=== PATIENT | female | born 1965 | race Caucasian/White ===

== ENCOUNTER 2016-04-12 08:21 | Emergency (ER) | payer OTHER, MEDICARE ==
[~2016-04-12] VITALS: Ht 160 cm; Wt 86.2 kg
[~2016-04-12 08:21] MED LIST: AUGMENTIN 875-1 EACH PO; CYCLOBENZAPRINE5 M2 PO; ENDOCET 325 MG-1 TA1 PO; FIORICET 325 MG1 TAB PO; FLONASE120 SPRAY/ NASB; GUAIFENESIN-COD10 ML PO; IBUPROFEN600 M1 PO; MOTRIN 600 MG600 MG PO; MOTRIN600 MG PO; NORCO 325 MG-51 TAB PO; NORVIR100 M1 PO; OXYCODONE HYDRO30 MG PO; PHENERGAN12.5 M1 PO; REYATAZ 300MG300 MG PO; TRUVADA 200 MG-1 TAB PO; ZITHROMAX Z PA250 MG PO
[2016-04-12 08:27] VITALS: BP 125/75
--- NOTE | 2016-04-12 09:02 | RADIOLOGY REPORT ---
EXAMINATION: XR FINGER, RIGHT CLINICAL INFORMATION: Evaluate for fracture COMPARISON: None TECHNIQUE: Three views of the right thumb. FINDINGS: Acute fracture proximal shaft distal phalanx with minimal cortical width displacement. Fracture line does not appear to extend to the articular surface. Joint spaces are preserved. Normal bony mineralization. IMPRESSION: Transverse fracture proximal shaft distal phalanx right thumb with negligible cortical width displacement.
[2016-04-12] MEDS ORDERED: NAPROSYN500 M1 PO (09:30)
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
== END 2016-04-12 09:34 ==
LOC: ERH 08:21
DX: S62.521A Displaced fracture of distal phalanx of right thumb, initial encounter for closed fracture (principal); W23.0XXA Caught, crushed, jammed, or pinched between moving objects, initial encounter
CPT/HCPCS: 73140-RT

== ENCOUNTER 2016-05-01 17:09 | Emergency (ER) | payer OTHER, MEDICARE ==
[~2016-05-01] VITALS: Ht 160 cm; Wt 86.2 kg
[~2016-05-01 17:09] MED LIST changes: +NAPROSYN500 M1 PO
[2016-05-01 17:22] VITALS: BP 136/90
[2016-05-01] MEDS ORDERED: CYCLOBENZAPRINE10 M1 PO (19:14)
[2016-05-01] MEDS ORDERED: IBUPROFEN800 M1 PO (19:14)
[2016-05-01] MEDS ORDERED: FIORICET 50-301 EACH PO (19:14)
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
== END 2016-05-01 19:18 ==
LOC: ERH 17:09
DX: S16.1XXA Strain of muscle, fascia and tendon at neck level, initial encounter (principal); R51 Headache; V43.52XA Car driver injured in collision with other type car in traffic accident, initial encounter; Y92.9 Unspecified place or not applicable

== ENCOUNTER 2017-10-15 03:48 | Inpatient (IN) | payer OTHER, MEDICARE ==
[~2017-10-15] VITALS: Ht 160 cm; Wt 91.0 kg
[~2017-10-15 03:48] MED LIST changes: +CYCLOBENZAPRINE10 M1 PO; +FIORICET 50-301 EACH PO; +IBUPROFEN800 M1 PO; +M.V.I. ADULT10 ML; +NORVIR100 M2 PO; +OXYCODONE HCL10 M2 PO; +PERCOCET 5-3251 EACH PO; +PREDNISONE10 M2 PO; +REYATAZ300 MG PO; +TRUVADA 200 MG1 EACH PO
--- NOTE | 2017-10-15 10:35 | Operative Report ---
Operative/Inv Procedure Report Surgery Date: 10/15/17 Name of Procedure: Laparoscopic revision of gastric bypass (trimming of the gastric pouc/ gastrojejunostomy/small bowel) Pre-Operative Diagnosis: Morbid Obesity BMI 36, DANNY, s/p LRYGB Post-Operative Diagnosis: Same Estimated Blood Loss: 50ml to 100ml Surgeon/Senior Hardware Engineer: Hesham Anthony DO Anesthesia: general endotracheal tube IV Fluids: 1500 cc Drains: 10 Fr RUQ BRADY Drain Specimens: Portion of stomach/GJ/small bowel Complications: None Condition: Stable Operative Indication: This is a 52-year-old female who presented to the office for workup for revisional surgery after gastric bypass. Patient underwent a gastric bypass approximately 10 years ago and now had some weight regain and inability to lose more weight. Preoperative upper endoscopy showed a dilated gastrojejunostomy and a long/dilated gastric pouch. A laparoscopic revision of the patient's gastric bypass was then discussed in detail. All risks including but not limited to bleeding, infection, leak, stricture, marginal ulcer, injury to surrounding bowel/esophagus/stomach/liver/spleen, malabsorption, internal hernia /small bowel obstruction, dumping syndrome, DVT/PE, and mortality 02/999 patients were discussed in detail. I also explained that since this is a revision of her risk of morbidity is higher than it is for the initial gastric bypass. The patient understood everything and decided to proceed. Operative/Procedure Note Note: The patient was brought to the operating room and placed on the table in supine position. Venodyne stockings were placed and adequate general endotracheal anesthesia was obtained. The patient was prepped and draped in standard surgical fashion. A 2 cm incision was made supraumbilically and slightly to the left of the midline and then using a 12 mm clear blunt visiport and a 10 mm 0 laparoscope the abdominal cavity was accessed. Great care was taken to go through the anterior rectus sheath, the posterior rectus sheath, and through the peritoneum. Once the peritoneum was entered the abdominal cavity was insufflated to 15 mmHg. Upon initial examination we did note some adhesions around the liver and in the right upper quadrant. 5 mm ports were placed, one in the epigastrium, one in the left upper quadrant, and one in the left lateral position. At that point right upper quadrant adhesions were lysed using harmonic scalpel until we had adequate room for placement of a 5 mm port in the right upper quadrant. Once all the ports were in we began dissecting the Analisa limb/gastrojejunostomy/gastric pouch. All adhesions around the hiatus were lysed using harmonic scalpel and EndoShears. All omental adhesions around the gastrojejunostomy and the small bowel were divided as well until the anatomy was clearly visualized. It was noted that the patient did have a long candycane with a dilated gastrojejunostomy and a slightly bigger gastric pouch. An Reyes tube was then placed into the gastric pouch through the gastrojejunostomy and down into the Analisa limb. And then the candycane/gastrojejunostomy/gastric pouch were trimmed along the Reyes tube using 60 mm purple staple loads 3. Following this the whole staple line was oversewn using 2-0 Vicryl suture imbricating the staple line. The resected portion of the stomach/small bowel were removed through the 12 mm port site. Following this an air and a methylene blue leak test were performed and no obvious leak was noted. The Reyes tube was then removed and we examined the area of dissection. No obvious bleeding/injury to surrounding structures were noted. The gastric pouch and the gastrojejunostomy now appeared a lot smaller. Left upper quadrant was irrigated until clear. Of note the 5 mm left upper quadrant port was upsized to a 12 mm port to allow for the stapler. We did visualize the jejunojejunostomy and there was no obvious evidence of an internal hernia. A 10 Tamazight BRADY drain was then placed through the right upper quadrant incision under the liver and over the spleen. All ports were removed under direct visualization, no bleeding was noted. Skin was closed using 4-0 Monocryl. Steri-Strips and dressings were placed. The patient was successfully extubated and transferred to the recovery room in stable condition. The patient tolerated the procedure well with no complications. Findings: No hiatal hernia, dilated pouch and anastomosis, campos odonnell CC: Vanda AVALOS,Renato
--- NOTE | 2017-10-15 11:03 | Admission Core Measures ---
Acute Coronary Syndrome (CM) ACS Core Measures Acute Coronary Syndrome Diagnosis No Congestive Heart Failure (NEW) CHF Core Measures Congestive Heart Failure Diagnosis No Cerebrovascular Accident CVA Core Measures CVA/TIA Diagnosis No Venous Thromboembolism VTE Core David (View Protocol) VTE Risk Factors Surgery No Mechanical VTE Prophylaxis d/t N/A MechProphylax Ordered No VTE Pharm Prophylaxis d/t NA PharmProphylax ordered Problem List As ranked by this Provider includes Assessment & Plan 1. S/P gastric bypass 2. Morbid obesity 3. Human immunodeficiency virus (HIV) seropositivity HOME MEDS Home Med List Atazanavir Sulfate (Reyataz) 300 MG CAPSULE 1 CAP PO DAILY HIV (Reported) Emtricitabine/Tenofovir (Truvada 200 MG-300 MG Tablet) 200 MG-300 MG TABLET 1 TAB PO DAILY HIV (Reported) Oxycodone HCl 10 MG TABLET 1 TAB PO TIDPRN PAIN (Reported) Ritonavir (Norvir) 100 MG CAPSULE 1 CAP PO DAILY HIV (Reported)
--- NOTE | 2017-10-15 11:07 | Surg Short-stay <48hrs Dis Sum ---
Visit Information Visit Dates Admission Date: 10/15/17 Discharge Date: 10/17/17 Surgical Short Stay DC Summary Admission Diagnosis: Morbid Obesity (BMI 36), DANNY, s/p LRYGB Final Diagnosis: Morbid Obesity (BMI 36), DANNY, s/p LRYGB s/p Surgery Date: 10/15/17 Name of Procedure: Laparoscopic revision of gastric bypass (trimming of the gastric pouch/ gastrojejunostomy/small bowel) Procedure(s): Surgery Date: 10/15/17 Name of Procedure: Laparoscopic revision of gastric bypass (trimming of the gastric pouch/ gastrojejunostomy/small bowel) Summary/Significant Findings: Electively scheduled laparoscopic revision of gastric bypass (trimming of the gastric pouch/gastrojejunostomy/small bowel) by on 10/15/17 for history of morbid obesity (BMI 36), DANNY, and s/p LRYGB status. BRADY drain left in place at the time of surgery. Started on stage 1 diet post-operatively. Upper gi study done on POD#1 to rule out leak and obstuction. Pain control titrated from iv to oral medication as able. Stable to go home once tolerating stage 1 diet and pain controlled. BRADY drain removal done prior to her discharge home. Condition at Discharge: stable Discharge Disposition: home or self care Discharge instructions provided to patient/family: Yes Post discharge follow-up plan: one week follow up with Copies to: Vanda AVALOS,Renato
--- NOTE | 2017-10-15 11:10 | Patient Discharge Instructions ---
Discharge Instructions General Discharge Information You were seen/treated for: Morbid Obesity (BMI 36), DANNY, s/p LRYGB You had these procedures: Surgery Date: 10/15/17 Name of Procedure: Laparoscopic revision of gastric bypass (trimming of the gastric pouch/ gastrojejunostomy/small bowel) Watch for these problems: fever>101.3, increased pain, redness/swelling/drainage, dizziness, shortness of breath, chest pains No bath, but you may shower: Yes Other wound care: ok to remove outer dressings. leave white steri strips in place. keep incisions clean & dry. dry guaze dressing changes daily or as needed for previous drain site until the drainage stops. Diet Continue normal diet: No Recommended Diet: Bariatric Additional DIET Information: weekly bariatric stage diet advancement as directed, as tolerated Activity Full Activity/No Limits: No Activity Self Limited: Yes Pounds, do NOT lift more than: 10 Other activity limits: no heavy lifting. no strenuous activity. Acute Coronary Syndrome Inclusion Criteria At DC or during hospital stay patient has or had the following: ACS DIAGNOSIS No Discharge Core Measures Meds if any: Prescribed or Continued at Discharge Meds if any: NOT Prescribed or Continued at Discharge Congestive Heart Failure Inclusion Criteria At DC or during hospital stay patient has or had the following: CHF DIAGNOSIS No Discharge Core Measures Meds if any: Prescribed or Continued at Discharge Meds if any: NOT Prescribed or Continued at Discharge Cerebrovascular accident Inclusion Criteria At DC or during hospital stay patient has or had the following: CVA/TIA Diagnosis No Discharge Core Measures Meds if any: Prescribed or Continued at Discharge Meds if any: NOT Prescribed or Continued at Discharge Venous thromboembolism Inclusion Criteria VTE Diagnosis No VTE Type NONE VTE Confirmed by (Test) NONE Discharge Core Measures - Per Current guidelines, there needs to be overlap - treatment for the first 5 days of Warfarin therapy. - If discharged on Warfarin prior to 5 days of - overlap therapy, the patient will need to be - assessed for post discharge needs including - *Post discharge parental anticoagulation - *Warfarin and/or parental anticoagulation education - *Follow up date to check INR post discharge At least 5 days overlap therapy as Inpatient No Meds if any: Prescribed or Continued at Discharge Note: Overlap Therapy is Warfarin and Anticoagulant Meds if any: NOT Prescribed or Continued at Discharge
[2017-10-15] MEDS ORDERED: PROTONIX40 M3 PO (11:11)
[2017-10-15 13:51] VITALS: BP 144/94
--- NOTE | 2017-10-15 14:52 | PN- Bariatrics ---
Subjective Subjective: POST-OP NOTE Reports some epigastric discomfort. "Feels like gas", and just tried some gas drops. No nausea. Ambulating without difficulty. No dizziness. No shortness of breath. No chest pains. Voided without difficulty. Someone will be bringing in her home medications that our pharmacy does not provide, for tomorrow. She anticipates an upper gi study in the morning. Objective Vital Signs and I&Os Vital Signs Date Time Temp Pulse Resp B/P B/P Pulse O2 O2 Flow FiO2 Mean Ox Delivery Rate 10/15 1351 97 Room Air 10/15 1351 98.2 85 18 144/94 97 Room Air Intake & Output 10/15 1600 10/15 0800 10/15 0000 10/14 1600 10/14 0800 10/14 0000 Intake Total Output Total Balance Patient 211 lb Weight Weight Bed scale Measurement Method Physical Exam: General - alert & oriented x 3. comfortable. no acute distress. Lungs - clear bilaterally. no w/r/r. Cardiac - s1s2. reg. Abdomen - soft. dressings stained but intact. DARBY drain with some bloody drainage. expected александр-incisional tenderness. Extremities - warm bilaterally. no c/c/e. calves soft and nontender b/l. athrombics active. Current Medications: Current Medications Sig/Yo Start time Last Medication Dose Route Stop Time Status Admin Acetaminophen 1,000 MG Q6 10/15 1800 AC N/A 1 UNIT IV 10/16 1214 Atazanavir 300 MG DAILY 10/15 1500 AC PO Cefazolin Sodium 2,000 MG IQ8 10/15 1600 CAN IV 10/16 0001 Cefazolin Sodium 2 GM IQ8 10/15 1600 AC N/A 1 UNIT IV 10/16 0029 Cefazolin Sodium 2,000 MG ONCE 10/15 0000 DC IV 10/15 2359 Dexamethasone 8 MG ONCE PRN 10/15 1345 AC IV PUSH Emtricitabine/ 1 TAB DAILY 10/15 1415 AC Tenofovir PO Fentanyl Citrate 0 .STK-MED ONE 10/15 0711 DC .ROUTE Heparin Sodium 5,000 UNIT Q8 10/15 1400 AC 10/15 (Porcine) SC 1423 Heparin Sodium 0 .STK-MED ONE 10/15 0632 DC (Porcine) .ROUTE Heparin Sodium 5,000 UNIT ONCE 10/15 0000 DC (Porcine) SC 10/15 2359 Hydromorphone HCl 0 .STK-MED ONE 10/15 1309 DC .ROUTE Hydromorphone HCl 0 .STK-MED ONE 10/15 1203 DC .ROUTE Hydromorphone HCl 0 .STK-MED ONE 10/15 0712 DC .ROUTE Midazolam HCl 0 .STK-MED ONE 10/15 0711 DC .ROUTE Morphine Sulfate 2 MG Q4-6 PRN PRN 10/15 1345 AC 10/15 IV 1418 Ondansetron HCl 4 MG Q6P PRN 10/15 1345 AC IV Ondansetron HCl 0 .STK-MED ONE 10/15 1214 DC .ROUTE Oxycodone HCl 5 MG Q4-6 PRN PRN 10/15 1345 AC PO Oxycodone HCl 10 MG Q4-6 PRN PRN 10/15 1345 AC PO Oxycodone HCl 15 MG Q4-6 PRN PRN 10/15 1345 AC PO Pantoprazole Sodium 40 MG DAILY 10/16 0900 AC IV Potassium Chloride 20 MEQ .[id number] 10/15 1345 AC 10/15 Dextrose/Sodium 1,000 ML IV 1412 Chloride Ritonavir 100 MG DAILY 10/15 1500 AC PO Simethicone 40 MG Q6P PRN 10/15 1345 AC 10/15 PO 1423 Assessment/Plan Assessment/Plan This 52 year old female with hx HIV, morbid obesity (BMI 36), DANNY, s/p LRYGB, who is POD#0 s/p laparoscopic revision of gastric bypass (trimming of the gastric pouch/gastrojejunostomy/small bowel), darby drain x 1 stage 1 bariatric diet as tolerated npo after midnight for upper gi study in AM pain medication as ordered (IV tylenol / oxycodone / IV morphine prn) hep sc - dvt ppx protonix - gi ppx anti-emetics as needed family to bring in her home meds tomorrow morning for HIV oob/ambulation encouraged monitor DARBY drainage f/u AM labs possible d/c home tomorrow vs will d/w Core Measures Venous Thromboembolism VTE Risk Factors Surgery No Mechanical VTE Prophylaxis d/t N/A MechProphylax Ordered No VTE Pharm Prophylaxis d/t NA PharmProphylax ordered
[2017-10-15 21:24] VITALS: BP 180/98
[2017-10-15 22:49] VITALS: BP 148/92
[2017-10-16 06:17] VITALS: BP 130/90
--- NOTE | 2017-10-16 07:52 | PN- General Surgery ---
See Addendum Subjective Subjective: Patient doing well this am. Ambulating, voiding, tolerated clears last HS, and pain is well controlled. She denies any other issues or complaints. No concerns per nursing. Objective Vital Signs and I&Os Vital Signs Date Time Temp Pulse Resp B/P B/P Pulse O2 O2 Flow FiO2 Mean Ox Delivery Rate 10/16 1100 Room Air 10/16 0800 96 Room Air 10/16 0617 98.5 82 20 130/90 96 Room Air 10/16 0000 95 Room Air Room Air 10/15 2249 148/92 10/15 2200 95 Room Air 10/15 2124 97.9 82 16 180/98 95 Room Air 10/15 2000 95 Room Air 10/15 1800 96 Room Air 10/15 1351 97 Room Air 10/15 1351 98.2 85 18 144/94 97 Room Air Intake & Output 10/16 1600 10/16 0800 10/16 0000 10/15 1600 10/15 0800 10/15 0000 Intake Total 1500 3120 650 Output Total 300 2060 2590 300 Balance -300 -560 530 350 Intake, IV 1500 2700 500 Intake, Oral 0 420 150 Number 0 0 Bowel Movements Output, 60 190 Drainage Output, Urine 300 2000 2400 300 Patient 203 lb 211 lb Weight Weight Bed scale Measurement Method Physical Exam: General: A, A, NAD Abdomen: S, obese, ND, appropriately ttp, dressings with some strikethrough and perincisional ecchymosis, darby with scant serosanginous fluid Extremities: No clubbing, cyanosis or edema Current Medications: Current Medications Sig/Yo Start time Last Medication Dose Route Stop Time Status Admin Acetaminophen 1,000 MG Q6 10/15 1800 AC 10/16 N/A 1 UNIT IV 10/16 1214 0701 Atazanavir 300 MG DAILY 10/15 1500 AC 10/16 PO 1038 Cefazolin Sodium 2,000 MG IQ8 10/15 1600 CAN IV 10/16 0001 Cefazolin Sodium 2 GM IQ8 10/15 1600 DC 10/16 N/A 1 UNIT IV 10/16 0029 0007 Cefazolin Sodium 2,000 MG ONCE 10/15 0000 DC IV 10/15 2359 Dexamethasone 8 MG ONCE PRN 10/15 1345 AC IV PUSH Emtricitabine/ 1 TAB DAILY 10/15 1415 AC 10/16 Tenofovir PO 1038 Heparin Sodium 5,000 UNIT Q8 10/15 1400 AC 10/16 (Porcine) SC 0701 Heparin Sodium 5,000 UNIT ONCE 10/15 0000 DC (Porcine) SC 10/15 2359 Hydromorphone HCl 0 .STK-MED ONE 10/15 1309 DC .ROUTE Hydromorphone HCl 0 .STK-MED ONE 10/15 1203 DC .ROUTE Morphine Sulfate 2 MG Q4-6 PRN PRN 10/15 1345 AC 10/16 IV 0440 Ondansetron HCl 4 MG Q6P PRN 10/15 1345 AC IV Ondansetron HCl 0 .STK-MED ONE 10/15 1214 DC .ROUTE Oxycodone HCl 5 MG Q4-6 PRN PRN 10/15 1345 AC PO Oxycodone HCl 10 MG Q4-6 PRN PRN 10/15 1345 AC PO Oxycodone HCl 15 MG Q4-6 PRN PRN 10/15 1345 AC PO Pantoprazole Sodium 40 MG DAILY 10/16 0900 AC 10/16 IV 1038 Potassium Chloride 20 MEQ .Q6H40M 10/15 1345 AC 10/16 Dextrose/Sodium 1,000 ML IV 0442 Chloride Ritonavir 100 MG DAILY 10/15 1500 AC 10/16 PO 1038 Simethicone 40 MG Q6P PRN 10/15 1345 AC 10/16 PO 0701 Results Last 48 Hours of Labs: Laboratory Tests 10/16 0700 Chemistry Sodium (137 - 145 mmol/L) 139 Potassium (3.5 - 5.1 mmol/L) 4.3 Chloride (98 - 107 mmol/L) 109 H Carbon Dioxide (22 - 30 mmol/L) 23 Anion Gap (5 - 16) 7 BUN (7 - 17 mg/dL) 11 Creatinine (0.5 - 1.0 mg/dL) 0.6 Estimated GFR (>60 ml/min) > 60 BUN/Creatinine Ratio (7 - 25 %) 18.3 Glucose (65 - 99 mg/dL) 168 H Magnesium (1.6 - 2.3 mg/dL) 1.8 Hematology CBC w Diff NO MAN DIFF REQ WBC (4.8 - 10.8 /CUMM) 7.7 RBC (4.20 - 5.40 /CUMM) 4.22 Hgb (12.0 - 16.0 G/DL) 12.0 Hct (37 - 47 %) 35.9 L MCV (81.0 - 99.0 FL) 85.1 MCH (27.0 - 31.0 PG) 28.4 MCHC (33.0 - 37.0 G/DL) 33.3 RDW (11.5 - 14.5 %) 14.8 H Plt Count (130 - 400 /CUMM) 174 MPV (7.4 - 10.4 FL) 9.7 Gran % (42.2 - 75.2 %) 88.3 H Lymphocytes % (20.5 - 51.1 %) 8.7 L Monocytes % (1.7 - 9.3 %) 3.0 Eosinophils % (0 - 5 %) 0 Basophils % (0.0 - 2.0 %) 0 Absolute Granulocytes (1.4 - 6.5 /CUMM) 6.8 H Absolute Lymphocytes (1.2 - 3.4 /CUMM) 0.7 L Absolute Monocytes (0.10 - 0.60 /CUMM) 0.2 Absolute Eosinophils (0.0 - 0.7 /CUMM) 0 Absolute Basophils (0.0 - 0.2 /CUMM) 0 Assessment/Plan Assessment/Plan This 52 year old female with hx HIV, morbid obesity (BMI 36), DANNY, s/p LRYGB, who is POD#0 s/p laparoscopic revision of gastric bypass (trimming of the gastric pouch/gastrojejunostomy/small bowel), darby drain x 1 stage 1 bariatric diet as tolerated upper gi study negative pain medication as ordered (IV tylenol / oxycodone / IV morphine prn) hep sc - dvt ppx protonix - gi ppx anti-emetics as needed oob/ambulation encouraged monitor DARBY drainage f/u AM labs possible d/c home today vs tomorrow d/w Core Measures Venous Thromboembolism VTE Risk Factors Surgery No Mechanical VTE Prophylaxis d/t N/A MechProphylax Ordered No VTE Pharm Prophylaxis d/t NA PharmProphylax ordered
[2017-10-16 08:12] LABS: ABSOLUTE BASOPHIL COUNT 0 /CUMM (0.0-0.2); ABSOLUTE EOSINOPHIL COUNT 0 /CUMM (0.0-0.7); ABSOLUTE GRANULOCYTE CT 6.8 /CUMM (1.4-6.5); ABSOLUTE LYMPH COUNT 0.7 /CUMM (1.2-3.4); ABSOLUTE MONOCYTE COUNT 0.2 /CUMM (0.10-0.60); BASOPHIL % 0 % (0.0-2.0); EOSINOPHIL % 0 % (0-5); HEMATOCRIT 35.9 % (37-47); MEAN CORPUSCULAR HGB 28.4 PG (27.0-31.0); MEAN CORPUSCULAR HGB CONC 33.3 G/DL (33.0-37.0); MEAN CORPUSCULAR VOLUME 85.1 FL (81.0-99.0); MEAN PLATELET VOLUME 9.7 FL (7.4-10.4); PLATELET COUNT 174 /CUMM (130-400); RBC DISTRIBUTION WIDTH 14.8 % (11.5-14.5); RED BLOOD CELL CT 4.22 /CUMM (4.20-5.40); WHITE BLOOD CELL COUNT 7.7 /CUMM (4.8-10.8)
[2017-10-16 09:27] LABS: GRANULOCYTE % 88.3 % (42.2-75.2)
--- NOTE | 2017-10-16 09:41 | RADIOLOGY REPORT ---
EXAMINATION: [place] UPPER GI SERIES CLINICAL INFORMATION: Postop day 1. Rule out leak/obstruction status post revision gastric bypass. COMPARISON: None TECHNIQUE: A single contrast upper GI series with fluoroscopy and spot imaging was performed. The patient ingested 30 mL Gastroview without difficulty in the upright and oblique positions. FINDINGS: A vamp cut out worker radiograph demonstrates a surgical drain in the left upper quadrant. There are postoperative findings related to gastric bypass. Contrast flowed from the esophagus into the stomach and readily emptied on progressive swallows. No leak was demonstrated. FLUOROSCOPY TIME: 1 minute 17 IMPRESSION: Postoperative findings related to gastric bypass without evidence of leak or obstruction.
[2017-10-16 13:56] VITALS: BP 147/92
[2017-10-16 22:22] VITALS: BP 128/83
[2017-10-17 06:29] VITALS: BP 146/80
[2017-10-17] MEDS ORDERED: PERCOCET 5-3251 EACH PO (07:53)
[2017-10-17] MEDS ORDERED: PROTONIX40 M3 PO (07:53)
--- NOTE | 2017-10-17 07:58 | PN- Bariatrics ---
Subjective Subjective: No complaints. Reports pain controlled. Tolerating stage 1 diet. No nausea. Passing flatus. Ambulating well, without difficulty. No dizziness. No shortness of breath. No chest pains. Voiding well. Eager for discharge to home today. She [facility] her [facility] [place]. Objective Vital Signs and I&Os Vital Signs Date Time Temp Pulse Resp B/P B/P Pulse O2 O2 Flow FiO2 Mean Ox Delivery Rate 10/17 0629 98.2 70 20 146/80 98 Room Air 10/17 0000 Room Air 10/16 2222 98.5 66 20 128/83 94 10/16 1400 97 Room Air 10/16 1356 98.3 71 20 147/92 97 Room Air 10/16 1100 Room Air 10/16 0800 96 Room Air Intake & Output 10/17 0810/17 0000 10/16 1600 10/16 0800 10/16 0000 10/15 1600 Intake Total 425 1290 1650 1500 3120 650 Output Total 1800 1220 1335 2060 2590 300 Balance -1375 70 315 -560 530 350 Intake, IV 454 406 2426 1500 2700 500 Intake, Oral 150 540 600 0 420 150 Number 0 0 0 0 Bowel Movements Output, 20 35 60 190 Drainage Output, Urine 1800 1200 1300 2000 2400 300 Patient 201 lb 203 lb 211 lb Weight Weight Bed scale Measurement Method Physical Exam: General - alert & oriented x 3. comfortable. no acute distress. Lungs - clear bilaterally. no w/r/r. Cardiac - s1s2. reg. Abdomen - soft. bowel sounds appreciated. DARBY drain with scant serosang drainage. expected александр-incisional tenderness. dressings stained but intact. Extremities - warm bilaterally. no c/c/e. calves soft and nontender b/l. Current Medications: Current Medications Sig/Yo Start time Last Medication Dose Route Stop Time Status Admin Acetaminophen 1,000 MG Q6 10/15 1800 DC 10/16 N/A 1 UNIT IV 10/16 1214 1206 Atazanavir 300 MG DAILY 10/15 1500 AC 10/16 PO 1038 Dexamethasone 8 MG ONCE PRN 10/15 1345 AC IV PUSH Emtricitabine/ 1 TAB DAILY 10/15 1415 AC 10/16 Tenofovir PO 1038 Heparin Sodium 5,000 UNIT Q8 10/15 1400 AC 10/16 (Porcine) SC 1401 Morphine Sulfate 2 MG Q4-6 PRN PRN 10/15 1345 AC 10/16 IV 2127 Ondansetron HCl 4 MG Q6P PRN 10/15 1345 AC IV Oxycodone HCl 5 MG Q4-6 PRN PRN 10/15 1345 AC PO Oxycodone HCl 10 MG Q4-6 PRN PRN 10/15 1345 AC 10/16 PO 1401 Oxycodone HCl 15 MG Q4-6 PRN PRN 10/15 1345 AC PO Pantoprazole Sodium 40 MG DAILY 10/16 0900 AC 10/16 IV 1038 Patient Medication 1 ED ONE ONE 10/16 1800 DC 10/16 Teaching ED 10/16 1801 2127 Potassium Chloride 20 MEQ .[id number] 10/15 134 AC 10/16 Dextrose/Sodium 1,000 ML IV 2127 Chloride Ritonavir 100 MG DAILY 10/15 1500 AC 10/16 PO 1038 Simethicone 40 MG Q6P PRN 10/15 1345 AC 10/16 PO 2128 Results Last 48 Hours of Labs: Laboratory Tests 10/16 0700 Chemistry Sodium (137 - 145 mmol/L) 139 Potassium (3.5 - 5.1 mmol/L) 4.3 Chloride (98 - 107 mmol/L) 109 H Carbon Dioxide (22 - 30 mmol/L) 23 Anion Gap (5 - 16) 7 BUN (7 - 17 mg/dL) 11 Creatinine (0.5 - 1.0 mg/dL) 0.6 Estimated GFR (>60 ml/min) > 60 BUN/Creatinine Ratio (7 - 25 %) 18.3 Glucose (65 - 99 mg/dL) 168 H Magnesium (1.6 - 2.3 mg/dL) 1.8 Hematology CBC w Diff NO MAN DIFF REQ WBC (4.8 - 10.8 /CUMM) 7.7 RBC (4.20 - 5.40 /CUMM) 4.22 Hgb (12.0 - 16.0 G/DL) 12.0 Hct (37 - 47 %) 35.9 L MCV (81.0 - 99.0 FL) 85.1 MCH (27.0 - 31.0 PG) 28.4 MCHC (33.0 - 37.0 G/DL) 33.3 RDW (11.5 - 14.5 %) 14.8 H Plt Count (130 - 400 /CUMM) 174 MPV (7.4 - 10.4 FL) 9.7 Gran % (42.2 - 75.2 %) 88.3 H Lymphocytes % (20.5 - 51.1 %) 8.7 L Monocytes % (1.7 - 9.3 %) 3.0 Eosinophils % (0 - 5 %) 0 Basophils % (0.0 - 2.0 %) 0 Absolute Granulocytes (1.4 - 6.5 /CUMM) 6.8 H Absolute Lymphocytes (1.2 - 3.4 /CUMM) 0.7 L Absolute Monocytes (0.10 - 0.60 /CUMM) 0.2 Absolute Eosinophils (0.0 - 0.7 /CUMM) 0 Absolute Basophils (0.0 - 0.2 /CUMM) 0 Assessment/Plan Assessment/Plan This 52 year old female with hx HIV, morbid obesity (BMI 36), DANNY, s/p LRYGB, who is POD#2 s/p laparoscopic revision of gastric bypass (trimming of the gastric pouch/gastrojejunostomy/small bowel), darby drain x 1 tolerating stage 1 bariatric diet pain controlled with oxycodone / tylenol oob/ambulating well hep sc - dvt ppx protonix - gi ppx DARBY drain removed without difficulty d/c home today will d/w Core Measures Venous Thromboembolism VTE Risk Factors Surgery No Mechanical VTE Prophylaxis d/t N/A MechProphylax Ordered No VTE Pharm Prophylaxis d/t NA PharmProphylax ordered
== END 2017-10-17 08:30 | DRG 619 ==
LOC: SDA 03:48 → 2NB 03:48 → ENRESERV 12:38 → ENTRNSPT 13:27 → EDTRNSPTSTS 13:32 → EDTRNSPT 13:32 → 2NB 13:41 → CMPTRNSPT 13:56 → ENPENDDIS 10-17 07:54 → 2NB 10-17 08:30
PROVIDERS: Physician Assistant
PROC: 0DBA4ZZ Excision of Jejunum, Percutaneous Endoscopic Approach (ICD-10-PCS; principal; 2017-10-15)
PROC: 0DB64ZZ Excision of Stomach, Percutaneous Endoscopic Approach (ICD-10-PCS; 2017-10-15)
PROC: 0D164ZA Bypass Stomach to Jejunum, Percutaneous Endoscopic Approach (ICD-10-PCS; 2017-10-15)
DX: E66.01 Morbid (severe) obesity due to excess calories (principal); B20 Human immunodeficiency virus [HIV] disease; Z68.36 Body mass index [BMI] 36.0-36.9, adult; Z98.84 Bariatric surgery status; G47.30 Sleep apnea, unspecified; I10 Essential (primary) hypertension
CPT/HCPCS: 2NBP; 36592; 74240; 82436; J0131; J0690; J1100; J1644; J2405; J7042; Q9968; S5012